=== PATIENT | female | born 1995 | race Caucasian/White ===

== ENCOUNTER 2018-04-15 11:26 | Emergency (ER) | payer OTHER ==
[~2018-04-15] VITALS: Ht 170.2 cm; Wt 81.7 kg
[~2018-04-15 11:26] MED LIST: LABETALOL HCL100 MG PO; PNV PRENATAL P1 EACH PO
[2018-04-15] MEDS ORDERED: ADALAT CC60 MG PO (11:51)
--- NOTE | 2018-04-16 16:20 | EKG ---
[facility] [address] [facility] [place], [place] [address] Signed Normal sinus rhythm Normal ECG When compared with ECG of 28-FEB-2018 09:39, No significant change was found Confirmed by KY BELL DO ([id number]) on 04/16/2018 4:20:40 PM Electronically Signed By: KY BELL DO 04/16/18 1620 PATIENT NAME: [id number] Electrocardiogram DATE OF : [birth year] PHYSICIAN: KY BELL DO REPORT #: [id number] REPORT IS CONFIDENTIAL AND NOT TO BE RELEASED WITHOUT AUTHORIZATION
== END 2018-04-15 13:25 | disposition short-term general hospital (02) ==
LOC: ED 11:26
PROC: 0T9B70Z Drainage of Bladder with Drainage Device, Via Natural or Artificial Opening (ICD-10-PCS; principal; 2018-04-15)
DX: O13.3 Gestational [pregnancy-induced] hypertension without significant proteinuria, third trimester (principal); I16.1 Hypertensive emergency; O99.343 Other mental disorders complicating pregnancy, third trimester; F15.10 Other stimulant abuse, uncomplicated; O99.333 Smoking (tobacco) complicating pregnancy, third trimester; F17.200 Nicotine dependence, unspecified, uncomplicated; Z3A.34 34 weeks gestation of pregnancy; Z79.899 Other long term (current) drug therapy
CPT/HCPCS: 51702; 80053; 81001; 85025; 85610; 85730; 93005; 93010; 96365; 96375; 96376; 99285; J3475; J7030